=== PATIENT | female | born 1945 | race Caucasian/White ===

== ENCOUNTER 2020-03-11 18:38 | Emergency (ER) | payer MEDICARE, OTHER ==
[~2020-03-11] VITALS: Ht 144.8 cm; Wt 63.5 kg
[2020-03-11] MEDS ORDERED: ATACAND8 MG PO (18:56)
[2020-03-11] MEDS ORDERED: LIPITOR10 MG PO (18:56)
[2020-03-11 21:16] VITALS: BP 173/86
== END 2020-03-11 21:17 | disposition home or self-care (01) ==
LOC: M.ERS 18:38
DX: S01.01XA Laceration without foreign body of scalp, initial encounter (principal); E78.00 Pure hypercholesterolemia, unspecified; Z88.1 Allergy status to other antibiotic agents; Z96.643 Presence of artificial hip joint, bilateral; Z85.3 Personal history of malignant neoplasm of breast; Z90.10 Acquired absence of unspecified breast and nipple; Z88.0 Allergy status to penicillin; W10.8XXA Fall (on) (from) other stairs and steps, initial encounter; Y93.89 Activity, other specified; Y92.89 Other specified places as the place of occurrence of the external cause; Y99.8 Other external cause status

== ENCOUNTER 2020-03-18 17:57 | Emergency (ER) | payer OTHER ==
[~2020-03-18] VITALS: Ht 147.3 cm; Wt 63.5 kg
[~2020-03-18 17:57] MED LIST: ATACAND8 MG PO; LIPITOR10 MG PO
[2020-03-18 19:21] VITALS: BP 149/64
== END 2020-03-18 19:21 | disposition home or self-care (01) ==
LOC: M.ERS 17:57
DX: S01.01XD Laceration without foreign body of scalp, subsequent encounter (principal); I10 Essential (primary) hypertension; E78.00 Pure hypercholesterolemia, unspecified; Z85.3 Personal history of malignant neoplasm of breast; Z90.10 Acquired absence of unspecified breast and nipple; Z96.643 Presence of artificial hip joint, bilateral; Z88.0 Allergy status to penicillin; Z88.1 Allergy status to other antibiotic agents; X58.XXXD Exposure to other specified factors, subsequent encounter